=== PATIENT | male | born 1970 | race Caucasian/White ===

== ENCOUNTER 2020-02-29 03:55 | Emergency (ER) | payer OTHER, SELFPAY ==
[2020-02-29 04:06] VITALS: BP 177/104; PULSE 75; RESP 20; TEMP 35.6; O2SAT 98; BMI 24.2
--- NOTE | 2020-02-29 05:00 | ED.DENTAL ---
HPI - Dental/Oral General Chief complaint: Dental/Oral Stated complaint: Dental Pain Time Seen by Provider: 02/29/20 05:00 Source: patient Mode of arrival: ambulatory Limitations: no limitations History of Present Illness MD Complaint: tooth pain Teeth map: 1. Onset (ago): day(s) (2) Duration: constant Severity: moderate Relieving factors: nothing Exacerbating factors: cold, heat and drinking fluids Context: poor dental care Associated symptoms: gum swelling Treatment prior to arrival: topical analgesic Related Data Previous Rx's Medication Instructions Recorded clindamycin HCl 300 mg PO Q8H 7 Days #21 cap 02/29/20 tramadol 50 mg PO TID PRN #10 tab 02/29/20 Allergies Allergy/AdvReac Type Severity Reaction Status Date / Time bee pollen [BEE STINGS] Allergy Intermediate HIVES Verified 02/29/20 04:06 sulfamethoxazole Allergy Unknown RASH Verified 02/29/20 04:06 [From BACTRIM] trimethoprim [From BACTRIM] Allergy Unknown RASH Verified 02/29/20 04:06 Review of Systems Review of Systems: Constitutional : No Fever, No Chills ENT/Mouth : No swallowing difficulty, no change in voice, positive dental pain, positive jaw pain, positive facial pain Eyes: No Eye Pain, No Swelling Cardiovascular : No Chest Pain, No SOB Respiratory : No Cough, No Sputum Gastrointestinal : No Nausea, No Vomiting, No Diarrhea Genitourinary : No Dysuria Musculoskeletal : No Myalgias Skin : No rash Neuro : No Weakness, No Numbness, No Headache PMFSH Past Medical History Medical History No known health problems Social History Social History (Updated 02/29/20 @ 05:26 by Giuliana Olguin DO) Smoking Status: Current every day smoker Advance Directives: No Advance Directives Information Provided: No Physical Exam Vital Signs: Vital Signs: Vital Signs Temp Pulse Resp BP Pulse Ox 02/29/20 04:06 96.1 F L 75 20 177/104 H 98 Body Mass Index 24.2 Appearance: Alert. Oriented X3. No acute distress. Eyes: Pupils equal, round and reactive to light. ENT: Pharynx normal. R lower molar mild fluctuance and swelling of gum, dental caries, poor dentitation, no swelling in sublingual or submandibular area Neck: Normal inspection. Neck supple. CVS: Normal heart rate and rhythm. Pulses normal. Respiratory: No respiratory distress. Breath sounds normal. Abdomen: Soft and nontender. Skin: Skin warm and dry. Normal skin color. Normal skin turgor. Extremities: No lower extremity edema. No calf ttp Neuro: Oriented X 3. No motor deficit. No sensory deficit. MDM - Dental/Oral MDM Narrative Medical decision making narrative: 49 yo male hx of poor dentition here with R lower dental pain mild and small abscess, no concern for deeper infection, start on antibiotics and pain medications refer to dentist, Rx tramadol for pain no prior seizure disorder Discharge Plan Discharge Clinical Impression: Gingival abscess Patient Disposition: Home, Self-Care Instructions: Dental Abscess (ED) Additional Instructions: please follow up with your dentist Prescriptions: New tramadol 50 mg tablet 50 mg PO TID PRN (Reason: pain) Qty: 10 RF: 0 clindamycin HCl 300 mg capsule 300 mg PO Q8H 7 Days Qty: 21 RF: 0
[2020-02-29] MEDS: traMADoL HCL 50 MG TABLET PO (05:43)
== END 2020-02-29 05:50 | disposition home or self-care (01) ==
PROVIDERS: Emergency Provider Emergency Medicine
DX: K04.7 Periapical abscess without sinus (principal)
CPT/HCPCS: 99283